=== PATIENT | female | born 1995 | race African-American/Black ===

== ENCOUNTER 2021-05-22 13:15 | Outpatient (CLI) | payer OTHER, SELFPAY | END 2021-05-22 15:16 | disposition home or self-care (01) | LOC: LABOR 13:39 → OB 05-27 14:39 | PROVIDERS: Referring Provider Family Medicine; Visit Provider Family Medicine | DX: Z03.71 Encounter for suspected problem with amniotic cavity and membrane ruled out (principal); Z3A.26 26 weeks gestation of pregnancy | CPT/HCPCS: 59050; 87210; G0378; G0379 ==